=== PATIENT | female | born 2000 | race Two or more races ===

== ENCOUNTER 2019-02-15 11:47 | Emergency (ER) | payer MEDICAID ==
[~2019-02-15] VITALS: Ht 154.9 cm; Wt 47.6 kg
[2019-02-15] MEDS ORDERED: SODIUM CHLORIDE 0.9% 500 ML IV ONE (12:03)
[2019-02-15] MEDS ORDERED: ACETAMINOPHEN 500 MG TAB PO ONE (12:15)
[2019-02-15] MEDS ORDERED: ONDANSETRON HCL 4 MG/2 ML VIAL IV ONE (12:15)
[2019-02-15 12:22] VITALS: BP 99/50
[2019-02-15 12:43] LABS: Basophils # (auto) 0.1 uL; Basophils % (auto) 0.4 % (0.0-2.0); Eosinophils # (auto) 0 uL; Eosinophils % (auto) 0.2 % (0.0-7.0); Hematocrit 43.7 % (36.0-46.0); Hemoglobin 14.8 g/dL (12.2-16.2); Lymphocytes # (auto) 1.2 uL; Lymphocytes % (auto) 8.7 % (10.0-50.0); Mean Corpuscular Hemoglobin 30.5 pg (28.0-32.0); Mean Corpuscular Volume 89.8 fL (80.0-100.0); Monocytes # (auto) 0.4 uL; Monocytes % (auto) 2.8 % (0.0-12.0); Neutrophils # (auto) 11.9 uL; Neutrophils % (auto) 87.9 % (37.0-80.0); Platelet Count (auto) 239 10^3/uL (140-450); Red Blood Cells 4.87 10^6/uL (4.0-5.20); White Blood Cell 13.5 10^3/uL (4.4-10.8)
[2019-02-15 12:58] LABS: INR 1.07 (0.9-1.15); Partial Thromboplastin Time 26.6 sec (23.78-33.04); Prothrombin Time 11.4 sec (9.27-12.13)
[2019-02-15 12:59] LABS: Albumin 4.3 g/dL (3.4-5.0)
[2019-02-15 13:04] LABS: BUN/Creatinine Ratio 14.8; Bilirubin, Total 0.4 mg/dL (0.2-1.0)
[2019-02-15 14:03] LABS: Urine Bacteria NONE SEEN /hpf (None Seen); Urine Blood 3+ /uL (Negative); Urine Mucus FEW (None Seen); Urine Specific Gravity 1.023 (1.001-1.035); Urine WBC 6 /hpf (0 - 5)
[2019-02-15] MEDS ORDERED: IOHEXOL 300 MG/ML 100ML BOTTLE IJ ONE (14:59)
[2019-02-15] MEDS ORDERED: cefTRIAXone W LIDOCAINE 1 GM IM IM ONE (15:00)
== END 2019-02-15 18:56 | disposition home or self-care (01) ==
LOC: ER 11:53
DX: N94.0 Mittelschmerz (principal); N39.0 Urinary tract infection, site not specified; Z88.0 Allergy status to penicillin
CPT/HCPCS: 36415; 74177; 76775; 76856; 80053; 81001; 83690; 84702; 85025; 85610; 85730; 87040; 94761; 99284; Q9967; J0696

== ENCOUNTER 2020-07-03 05:23 | Emergency (ER) | payer MEDICAID ==
[~2020-07-03] VITALS: Ht 129.5 cm; Wt 48.5 kg
[2020-07-03 06:39] LABS: Urine WBC None Seen /hpf (0 - 5)
[2020-07-03 06:45] LABS: Urine Bacteria NONE SEEN /hpf (None Seen); Urine Blood 3+ /uL (Negative); Urine Mucus FEW (None Seen); Urine Specific Gravity 1.027 (1.001-1.035)
[2020-07-03 07:23] VITALS: BP 99/59
[2020-07-03] MEDS ORDERED: KETOROLAC TROMETH 30 MG/ML 1ML VIAL IV ONE (08:00)
[2020-07-03 08:05] LABS: Basophils # (auto) 0 10 ^3/uL (0-0.2); Basophils % (auto) 0.2 % (0.0-2.0); Eosinophils # (auto) 0 10 ^3/uL (0-0.8); Eosinophils % (auto) 0.1 % (0.0-7.0); Hematocrit 44.6 % (36.0-46.0); Hemoglobin 15.4 g/dL (12.2-16.2); Lymphocytes # (auto) 0.8 10 ^3/uL (0.4-5.4); Lymphocytes % (auto) 4.8 % (10.0-50.0); Mean Corpuscular Hemoglobin 30.8 pg (28.0-32.0); Mean Corpuscular Hgb Conc. 34.6 g/dL (32.0-36.0); Monocytes # (auto) 0.4 10 ^3/uL (0-1.3); Monocytes % (auto) 2.7 % (0.0-12.0); Neutrophils # (auto) 14.7 10 ^3/uL (1.6-8.6); Neutrophils % (auto) 92.2 % (37.0-80.0); Platelet Count (auto) 269 10^3/uL (140-450); Red Blood Cells 5.01 10^6/uL (4.0-5.20); Red Cell Distribution Width 13.3 % (11.8-14.3)
[2020-07-03 08:13] LABS: Albumin 4.5 g/dL (3.4-5.0); BUN/Creatinine Ratio 16.4; Potassium 3.5 mmol/L (3.5-5.1)
[2020-07-03 08:16] LABS: Bilirubin, Total 0.5 mg/dL (0.2-1.0); Total Protein 8.8 g/dL (6.4-8.2)
== END 2020-07-03 08:54 | disposition home or self-care (01) ==
LOC: ER 05:23
DX: R10.32 Left lower quadrant pain (principal); R11.2 Nausea with vomiting, unspecified
CPT/HCPCS: 36415; 74176; 80053; 81001; 83690; 84702; 85025; 96374; 99284; J1885

== ENCOUNTER 2021-02-22 09:29 | Emergency (ER) | payer MEDICAID ==
[~2021-02-22] VITALS: Ht 154.9 cm; Wt 52.2 kg
[2021-02-22 09:37] VITALS: BP 107/64
== END 2021-02-22 11:12 | disposition home or self-care (01) ==
LOC: ER 09:29
DX: S90.32XA Contusion of left foot, initial encounter (principal); Z88.0 Allergy status to penicillin; W18.00XA Striking against unspecified object with subsequent fall, initial encounter; Y93.89 Activity, other specified; Y92.89 Other specified places as the place of occurrence of the external cause; Y99.8 Other external cause status
CPT/HCPCS: 73630

== ENCOUNTER 2022-09-17 20:24 | Emergency (ER) | payer MEDICAID ==
[~2022-09-17] VITALS: Ht 154.9 cm; Wt 55.8 kg
[2022-09-17 23:17] LABS: Urine Bacteria MOD /hpf (None Seen); Urine Blood Negative /uL (Negative); Urine Hyaline Cast FEW /lpf (0 - 2); Urine Mucus FEW (None Seen); Urine Specific Gravity 1.019 (1.001-1.035); Urine WBC 12 /hpf (0 - 5)
[2022-09-17] MEDS ORDERED: ONDA-144 PO (23:54)
[2022-09-18] MEDS ORDERED: ONDANSETRON ODT 4 MG TAB PO ONE
[2022-09-18 00:30] VITALS: BP 120/72
== END 2022-09-18 00:41 | disposition home or self-care (01) ==
LOC: ER 20:24
DX: O21.8 Other vomiting complicating pregnancy (principal); O23.42 Unspecified infection of urinary tract in pregnancy, second trimester; N39.0 Urinary tract infection, site not specified; O99.512 Diseases of the respiratory system complicating pregnancy, second trimester; J06.9 Acute upper respiratory infection, unspecified; Z79.899 Other long term (current) drug therapy; Z88.0 Allergy status to penicillin; Z3A.20 20 weeks gestation of pregnancy; Z20.822 Contact with and (suspected) exposure to COVID-19
CPT/HCPCS: 36415; 81001; 87426; 87804; 99283; Q0162

== ENCOUNTER 2022-09-22 08:35 | Emergency (ER) | payer MEDICAID ==
[~2022-09-22] VITALS: Ht 154.9 cm; Wt 55.9 kg
[~2022-09-22 08:35] MED LIST: ONDA-144 PO
[2022-09-22] MEDS ORDERED: ACET1CAP14 PO (10:07)
[2022-09-22 11:23] LABS: Basophils # (auto) 0.1 10 ^3/uL (0-0.2); Basophils % (auto) 0.6 % (0.0-2.0); Eosinophils # (auto) 0 10 ^3/uL (0-0.8); Eosinophils % (auto) 0.3 % (0.0-7.0); Hematocrit 36.8 % (36.0-46.0); Hemoglobin 12.7 g/dL (12.2-16.2); Lymphocytes # (auto) 0.9 10 ^3/uL (0.4-5.4); Lymphocytes % (auto) 9.9 % (10.0-50.0); Mean Corpuscular Hemoglobin 31.4 pg (28.0-32.0); Mean Corpuscular Hgb Conc. 34.5 g/dL (32.0-36.0); Mean Corpuscular Volume 91.2 fL (80.0-100.0); Monocytes # (auto) 0.7 10 ^3/uL (0-1.3); Monocytes % (auto) 7.9 % (0.0-12.0); Neutrophils % (auto) 81.3 % (37.0-80.0); Nucleated Red Blood Cells % 0.1 %; Red Blood Cells 4.04 10^6/uL (4.0-5.20); Red Cell Distribution Width 13.5 % (11.8-14.3); White Blood Cell 8.6 10^3/uL (4.4-10.8)
[2022-09-22 11:33] LABS: Urine Bacteria FEW /hpf (None Seen); Urine Blood Negative /uL (Negative); Urine Mucus FEW (None Seen); Urine Specific Gravity 1.031 (1.001-1.035); Urine WBC 10 /hpf (0 - 5)
[2022-09-22] MEDS ORDERED: NITR-52 PO (12:04)
[2022-09-22 12:16] LABS: BUN/Creatinine Ratio 14.6; Calcium 8.9 mg/dL (8.5-10.1); Potassium 3.9 mmol/L (3.5-5.1)
[2022-09-22 13:00] VITALS: BP 132/64
== END 2022-09-22 13:24 | disposition home or self-care (01) ==
LOC: ER 08:35
DX: O99.512 Diseases of the respiratory system complicating pregnancy, second trimester (principal); N39.0 Urinary tract infection, site not specified; J10.1 Influenza due to other identified influenza virus with other respiratory manifestations; Z3A.20 20 weeks gestation of pregnancy; Z88.0 Allergy status to penicillin; Z20.822 Contact with and (suspected) exposure to COVID-19
CPT/HCPCS: 36415; 76805; 80048; 81001; 81025; 84702; 85025; 86901; 87426; 87804

== ENCOUNTER 2022-11-11 07:19 | Observation (INO) | payer MEDICAID ==
[~2022-11-11 07:19] MED LIST changes: +ACET1CAP14 PO; +NITR-52 PO
[2022-11-11] MEDS ORDERED: PREN-96 PO (08:08)
== END 2022-11-11 08:19 | disposition home or self-care (01) ==
LOC: LDRP 07:19
PROVIDERS: ADMIT Obstetrics & Gynecology; ATTEND Obstetrics & Gynecology
DX: O36.8120 Decreased fetal movements, second trimester, not applicable or unspecified (principal); Z3A.27 27 weeks gestation of pregnancy
CPT/HCPCS: 59025; 81002; 94760; G0378

== ENCOUNTER 2022-12-31 19:23 | Observation (INO) | payer MEDICAID ==
[~2022-12-31] VITALS: Ht 154.9 cm; Wt 59.9 kg
[~2022-12-31 19:23] MED LIST changes: +PREN-96 PO
[2022-12-31] MEDS ORDERED: CEPH-510 PO (21:35)
== END 2022-12-31 21:49 | disposition home or self-care (01) ==
LOC: LDRP 19:23 → UNDOADMIN 19:23 → LDRP 19:23 → UNDODISIN 21:55 → EDSTATUS 01-01 06:16
PROVIDERS: ADMIT Obstetrics & Gynecology; ATTEND Obstetrics & Gynecology
DX: O23.43 Unspecified infection of urinary tract in pregnancy, third trimester (principal); O26.853 Spotting complicating pregnancy, third trimester; Z3A.35 35 weeks gestation of pregnancy; Z88.0 Allergy status to penicillin
CPT/HCPCS: 59025; 76818; 81002; G0378

== ENCOUNTER → 2023-01-06 | Outpatient (CLI) | payer MEDICAID ==
[~2023-01-06] MED LIST changes: +CEPH-510 PO; -ONDA-144 PO
[2023-01-06 12:24] LABS: Basophils # (auto) 0 10 ^3/uL (0-0.2); Basophils % (auto) 0.4 % (0.0-2.0); Eosinophils # (auto) 0.1 10 ^3/uL (0-0.8); Eosinophils % (auto) 1.2 % (0.0-7.0); Hematocrit 39.8 % (36.0-46.0); Hemoglobin 13.9 g/dL (12.2-16.2); Lymphocytes # (auto) 1.3 10 ^3/uL (0.4-5.4); Lymphocytes % (auto) 15.1 % (10.0-50.0); Mean Corpuscular Hemoglobin 31.2 pg (28.0-32.0); Mean Corpuscular Hgb Conc. 34.9 g/dL (32.0-36.0); Mean Corpuscular Volume 89.4 fL (80.0-100.0); Monocytes # (auto) 0.6 10 ^3/uL (0-1.3); Monocytes % (auto) 6.8 % (0.0-12.0); Neutrophils # (auto) 6.4 10 ^3/uL (1.6-8.6); Neutrophils % (auto) 76.5 % (37.0-80.0); Red Blood Cells 4.46 10^6/uL (4.0-5.20); Red Cell Distribution Width 13.9 % (11.8-14.3); White Blood Cell 8.3 10^3/uL (4.4-10.8)
[2023-01-07 07:06] LABS: RPR Non Reactive (Non Reactive)
== END | disposition home or self-care (01) ==
LOC: LAB 11:46
PROVIDERS: ATTEND Obstetrics & Gynecology
DX: Z34.80 Encounter for supervision of other normal pregnancy, unspecified trimester (principal); Z3A.00 Weeks of gestation of pregnancy not specified
CPT/HCPCS: 36415; 84112; 85025; 86592

== ENCOUNTER 2023-01-30 10:52 | Observation (INO) | payer MEDICAID ==
[2023-01-30 13:26] LABS: Basophils # (auto) 0 10 ^3/uL (0-0.2); Basophils % (auto) 0.4 % (0.0-2.0); Eosinophils # (auto) 0.3 10 ^3/uL (0-0.8); Eosinophils % (auto) 3.2 % (0.0-7.0); Hematocrit 38.7 % (36.0-46.0); Hemoglobin 13.3 g/dL (12.2-16.2); Lymphocytes # (auto) 1.3 10 ^3/uL (0.4-5.4); Lymphocytes % (auto) 14.8 % (10.0-50.0); Mean Corpuscular Hemoglobin 30.9 pg (28.0-32.0); Mean Corpuscular Hgb Conc. 34.3 g/dL (32.0-36.0); Monocytes # (auto) 0.6 10 ^3/uL (0-1.3); Monocytes % (auto) 6.6 % (0.0-12.0); Neutrophils # (auto) 6.3 10 ^3/uL (1.6-8.6); Red Cell Distribution Width 14.8 % (11.8-14.3); White Blood Cell 8.4 10^3/uL (4.4-10.8)
[2023-01-30 13:59] LABS: Albumin 2.6 g/dL (3.4-5.0); Calcium 8.8 mg/dL (8.5-10.1); Potassium 3.6 mmol/L (3.5-5.1)
[2023-01-30 14:03] LABS: Bilirubin, Total 0.2 mg/dL (0.2-1.0); Total Protein 6.7 g/dL (6.4-8.2)
[2023-01-30] MEDS ORDERED: DIPH25CA66 PO (15:05)
== END 2023-01-30 15:15 | disposition home or self-care (01) ==
LOC: UNDOADMOB 10:52 → LDRP 10:52
PROVIDERS: ADMIT Obstetrics & Gynecology; ATTEND Obstetrics & Gynecology
DX: O62.9 Abnormality of forces of labor, unspecified (principal); O36.8130 Decreased fetal movements, third trimester, not applicable or unspecified; Z3A.39 39 weeks gestation of pregnancy
CPT/HCPCS: 36415; 59025; 80053; 81002; 85025; 94760; G0378

== ENCOUNTER 2023-01-31 17:40 | Inpatient (IN) | payer MEDICAID ==
[~2023-01-31] VITALS: Ht 154.9 cm; Wt 61.7 kg
[~2023-01-31 17:40] MED LIST changes: +DIPH25CA66 PO; -NITR-52 PO
[2023-01-31] MEDS ORDERED: PROMETHAZINE HCL 25 MG/ML 1ML IV PRN (19:45)
[2023-01-31] MEDS ORDERED: BUTORPHANOL TARTRATE 2 MG/1 ML VIAL IV PRN ×2 (19:45)
[2023-01-31] MEDS ORDERED: LACT. RINGERS/OXYTOCIN 20UNITS 500 ML IV ONE ×2 (19:45→20:15)
[2023-01-31] MEDS ORDERED: LIDOCAINE 2%HCL (LOCAL ANESTH.) INJ 20ML MDV IJ PRN (19:45)
[2023-01-31] MEDS ORDERED: PHISODERM TOP SOLN 240ML BTL TOP PRN (19:45)
[2023-01-31 20:16] LABS: Basophils # (auto) 0.1 10 ^3/uL (0-0.2); Basophils % (auto) 0.5 % (0.0-2.0); Eosinophils # (auto) 0.4 10 ^3/uL (0-0.8); Eosinophils % (auto) 3.4 % (0.0-7.0); Hematocrit 40.9 % (36.0-46.0); Hemoglobin 14.3 g/dL (12.2-16.2); Lymphocytes # (auto) 1.6 10 ^3/uL (0.4-5.4); Lymphocytes % (auto) 13.2 % (10.0-50.0); Mean Corpuscular Hemoglobin 30.7 pg (28.0-32.0); Mean Corpuscular Volume 87.7 fL (80.0-100.0); Monocytes # (auto) 0.6 10 ^3/uL (0-1.3); Monocytes % (auto) 4.6 % (0.0-12.0); Neutrophils # (auto) 9.4 10 ^3/uL (1.6-8.6); Neutrophils % (auto) 78.3 % (37.0-80.0); Nucleated Red Blood Cells % 0.9 %; Red Blood Cells 4.66 10^6/uL (4.0-5.20); Red Cell Distribution Width 14.4 % (11.8-14.3); White Blood Cell 12.1 10^3/uL (4.4-10.8)
[2023-01-31 20:30] LABS: Urine Bacteria NONE SEEN /hpf (None Seen); Urine Blood Negative /uL (Negative); Urine Mucus FEW (None Seen); Urine Specific Gravity 1.029 (1.001-1.035); Urine WBC 9 /hpf (0 - 5)
[2023-01-31 20:32] LABS: INR 0.92 (0.9-1.15); Partial Thromboplastin Time 32.8 sec (24.6-33.4)
[2023-01-31 20:45] LABS: Albumin 3.1 g/dL (3.4-5.0); Calcium 9.4 mg/dL (8.5-10.1); Potassium 3.6 mmol/L (3.5-5.1)
[2023-01-31 20:45] LABS: Amphetamine Screen, Urine NEGATIVE (NEGATIVE); Barbiturate Scree,Urine NEGATIVE (NEGATIVE); Benzodiazephine Screen, Urine NEGATIVE (NEGATIVE); Cannabinoid Screen, Urine NEGATIVE (NEGATIVE); Cocaine Screen, Urine NEGATIVE (NEGATIVE); Opiate Scree,Urine NEGATIVE (NEGATIVE); Phencyclidine Screen, Urine NEGATIVE (NEGATIVE)
[2023-01-31 20:54] LABS: Bilirubin, Total 0.4 mg/dL (0.2-1.0); Total Protein 7.8 g/dL (6.4-8.2)
[2023-01-31] MEDS: LACTATED RINGER'S 1,000 ML IV SCH (22:17)
[2023-02-01] MEDS: LACTATED RINGER'S 1,000 ML IV SCH ×3 (00:32→22:25)
[2023-02-01] MEDS ORDERED: diphenhdrAMINE HCL 25 MG CAP PO ONE (04:15)
[2023-02-01] MEDS ORDERED: miSOPROStol 100 mcg TAB ONE (04:39)
[2023-02-01] MEDS: miSOPROStol 50 MCG per PRE-CUT 1/2 TAB PO PRN ×2 (04:45→08:34)
[2023-02-01] MEDS: diphenhdrAMINE HCL 50 MG/1 ML VL IV PRN ×2 (10:37→14:19)
[2023-02-01] MEDS ORDERED: Lidocaine W-Epinephrine 1.5%-1:200,000 INJ 10ml Vial ONE (11:42)
[2023-02-01] MEDS ORDERED: NALOXONE HCL 0.4 MG/ML VIAL IV ONE (11:45)
[2023-02-01] MEDS ORDERED: ROPIVACAINE HCL 200 ML EPI SCH (11:45)
[2023-02-01] MEDS ORDERED: LIDOCAINE HCL 2 %PF INJ 10ML AMP IJ ONE (11:45)
[2023-02-01] MEDS ORDERED: ePHEDrine SULFATE 50 MG/ML AMP IV ONE (11:45)
[2023-02-01] MEDS ORDERED: LIDOCAINE W/ EPINEPHRINE 1.5 % INJ 5ML AMP IJ ONE (11:45)
[2023-02-01] MEDS ORDERED: TERBUTALINE SULFATE 1 MG/ML 1ML VIAL SC PRN (12:45)
[2023-02-01] MEDS ORDERED: LACT. RINGERS/OXYTOCIN 20UNITS 1,000 ML IV SCH (12:45)
[2023-02-01] MEDS: WITCH HAZEL-GLYCERIN PAD TOP PRN (16:48)
[2023-02-01] MEDS: DERMOPLAST 60ML BOTTLE TOP PRN (16:49)
[2023-02-01] MEDS ORDERED: FAMOTIDINE (10MG/ML) 2ML VL IV ONE (17:00)
[2023-02-01] MEDS ORDERED: LORATADINE 10 MG TAB PO ONE (17:00)
[2023-02-01] MEDS ORDERED: miSOPROStol 100 mcg TAB SL PRN (18:15)
[2023-02-01] MEDS ORDERED: METHYLERGONOVINE MALEATE 0.2 MG/ML AMP IM PRN (18:15)
[2023-02-01] MEDS ORDERED: ACETAMINOPHEN 325 MG TAB PO PRN (18:15)
[2023-02-01] MEDS ORDERED: CARBOPROST TROMETHAMINE 250 MCG/1ML VIAL IM PRN (22:30)
[2023-02-02] MEDS ORDERED: LACT. RINGERS/OXYTOCIN 20UNITS 500 ML IV ONE ×2 (01:50→02:20)
[2023-02-02] MEDS ORDERED: ERYTHROMY OPTH OINT 5mg/gm 1gm or 3.5gm tube OP ONE (02:30)
[2023-02-02] MEDS ORDERED: HEPATITIS B VACCINE PED (PF) 10 MCG/0.5 ML IM ONE (02:30)
[2023-02-02] MEDS ORDERED: PHYTONADIONE 1MG/0.5ML SYRINGE NEONATAL IM ONE (02:30)
[2023-02-02] MEDS ORDERED: ONDANSETRON ODT 4 MG TAB PO PRN (03:00)
[2023-02-02] MEDS: ACETAMINOPHEN 325 MG TAB PO PRN ×2 (03:14→11:59)
[2023-02-02] MEDS ORDERED: miSOPROStol 50 MCG per PRE-CUT 1/2 TAB PO PRN (03:15)
[2023-02-02 07:10] VITALS: BP 97/57
[2023-02-02] MEDS: IBUPROFEN 800 MG TAB PO PRN ×2 (08:37→23:18)
[2023-02-02] MEDS ORDERED: DIPHENOXYLATE W/ATROPINE 2.5 MG TAB PO SCH (10:00)
[2023-02-02 10:30] VITALS: BP 96/62
[2023-02-02 15:30] VITALS: BP 98/66
[2023-02-02 19:30] VITALS: BP 104/70
[2023-02-02] MEDS: diphenhdrAMINE HCL 25 MG CAP PO PRN (21:44)
[2023-02-02] MEDS ORDERED: DOCUSATE SOD 100 MG CAP PO SCH (22:00)
[2023-02-02 23:15] VITALS: BP 112/65
[2023-02-03 04:00] VITALS: BP 103/62
[2023-02-03] MEDS: ACETAMINOPHEN 325 MG TAB PO PRN (04:24)
[2023-02-03 07:00] VITALS: BP 105/60
[2023-02-03] MEDS: WITCH HAZEL-GLYCERIN PAD TOP PRN (09:03)
[2023-02-03] MEDS: DERMOPLAST 60ML BOTTLE TOP PRN (09:03)
[2023-02-03] MEDS: diphenhdrAMINE HCL 25 MG CAP PO PRN (09:03)
[2023-02-03] MEDS: IBUPROFEN 800 MG TAB PO PRN (09:03)
[2023-02-03 11:00] VITALS: BP 117/59
[2023-02-03 12:07] LABS: RPR Non Reactive (Non Reactive)
== END 2023-02-03 11:45 | disposition home or self-care (01) | DRG 560 ==
LOC: UNDOADMOB 17:40 → LDRP 17:40 → OBSVTOIN 19:33 → LDRP 02-02 04:23
PROVIDERS: ADMIT Obstetrics & Gynecology; ATTEND Obstetrics & Gynecology
PROC: 3E0DXGC Introduction of Other Therapeutic Substance into Mouth and Pharynx, External Approach (ICD-10-PCS; 2023-01-31)
PROC: 3E0P7VZ Introduction of Hormone into Female Reproductive, Via Natural or Artificial Opening (ICD-10-PCS; 2023-01-31)
PROC: 10E0XZZ Delivery of Products of Conception, External Approach (ICD-10-PCS; principal; 2023-02-02)
PROC: 0UQMXZZ Repair Vulva, External Approach (ICD-10-PCS; 2023-02-02)
PROC: 00HU33Z Insertion of Infusion Device into Spinal Canal, Percutaneous Approach (ICD-10-PCS; 2023-02-02)
PROC: 3E0R3BZ Introduction of Anesthetic Agent into Spinal Canal, Percutaneous Approach (ICD-10-PCS; 2023-02-02)
DX: O77.0 Labor and delivery complicated by meconium in amniotic fluid (principal); Z37.0 Single live birth; O48.0 Post-term pregnancy; O70.0 First degree perineal laceration during delivery; Z20.822 Contact with and (suspected) exposure to COVID-19; Z88.5 Allergy status to narcotic agent; Z88.0 Allergy status to penicillin; Z3A.40 40 weeks gestation of pregnancy; O76 Abnormality in fetal heart rate and rhythm complicating labor and delivery
CPT/HCPCS: 36415; 59025; 59409; 62282; 76818; 80053; 80307; 81001; 81002; 85025; 85610; 85730; 86592; 86850; 86900; 86901; 87426; 94760; 94762; 96360; 96361; 96365; 96366; G0378; J2590; J3490

== ENCOUNTER → 2023-04-01 | Outpatient (CLI) | payer MEDICAID ==
[2023-04-01 11:26] LABS: Basophils # (auto) 0.1 10 ^3/uL (0-0.2); Basophils % (auto) 0.9 % (0.0-2.0); Eosinophils # (auto) 0.2 10 ^3/uL (0-0.8); Eosinophils % (auto) 3.6 % (0.0-7.0); Hematocrit 40.9 % (36.0-46.0); Hemoglobin 14.2 g/dL (12.2-16.2); Lymphocytes # (auto) 1.7 10 ^3/uL (0.4-5.4); Lymphocytes % (auto) 25.8 % (10.0-50.0); Mean Corpuscular Hemoglobin 30.1 pg (28.0-32.0); Mean Corpuscular Hgb Conc. 34.8 g/dL (32.0-36.0); Mean Corpuscular Volume 86.4 fL (80.0-100.0); Monocytes # (auto) 0.4 10 ^3/uL (0-1.3); Monocytes % (auto) 6.3 % (0.0-12.0); Neutrophils # (auto) 4.3 10 ^3/uL (1.6-8.6); Neutrophils % (auto) 63.4 % (37.0-80.0); Nucleated Red Blood Cells % 0.1 %; Red Blood Cells 4.73 10^6/uL (4.0-5.20); Red Cell Distribution Width 13.4 % (11.8-14.3); White Blood Cell 6.8 10^3/uL (4.4-10.8)
[2023-04-01 12:26] LABS: Beta HCG, Quantitative < 1 mlU/mL (1-3); Thyroid Stimulating Hormone 1.57 uIU/mL (0.358-3.74)
[2023-04-01 13:18] LABS: Follicle Stimulating Hormone 4.61 IU/L (SEE BELOW); Leuteinizing Hormone 4.9 IU/L
== END | disposition home or self-care (01) ==
LOC: LAB 11:12
PROVIDERS: ATTEND Obstetrics & Gynecology
DX: N93.9 Abnormal uterine and vaginal bleeding, unspecified (principal)
CPT/HCPCS: 36415; 81025; 82670; 83001; 83002; 84144; 84403; 84443; 84702; 85025

== ENCOUNTER 2023-04-15 11:48 | Emergency (ER) | payer MEDICAID ==
[~2023-04-15] VITALS: Ht 154.9 cm; Wt 53.0 kg
[2023-04-15 12:15] VITALS: BP 101/78
[2023-04-15 13:36] LABS: Basophils # (auto) 0.1 10 ^3/uL (0-0.2); Basophils % (auto) 0.4 % (0.0-2.0); Eosinophils # (auto) 0.1 10 ^3/uL (0-0.8); Hemoglobin 14.2 g/dL (12.2-16.2); Lymphocytes # (auto) 1.5 10 ^3/uL (0.4-5.4); Lymphocytes % (auto) 11.8 % (10.0-50.0); Mean Corpuscular Hemoglobin 29.6 pg (28.0-32.0); Mean Corpuscular Hgb Conc. 33.7 g/dL (32.0-36.0); Mean Corpuscular Volume 87.7 fL (80.0-100.0); Monocytes # (auto) 0.5 10 ^3/uL (0-1.3); Monocytes % (auto) 4.4 % (0.0-12.0); Neutrophils # (auto) 10.4 10 ^3/uL (1.6-8.6); Neutrophils % (auto) 82.4 % (37.0-80.0); Red Blood Cells 4.79 10^6/uL (4.0-5.20); Red Cell Distribution Width 13.5 % (11.8-14.3); White Blood Cell 12.6 10^3/uL (4.4-10.8)
[2023-04-15 13:45] LABS: Urine Bacteria MANY /hpf (None Seen); Urine Blood 3+ /uL (Negative); Urine Mucus FEW (None Seen); Urine Specific Gravity 1.029 (1.001-1.035); Urine WBC 141 /hpf (0 - 5)
[2023-04-15 14:02] LABS: Albumin 4.1 g/dL (3.4-5.0); CRP High Sensitivity 0.14 mg/dL (< 0.3); Calcium 8.7 mg/dL (8.5-10.1); Potassium 3.7 mmol/L (3.5-5.1)
[2023-04-15 14:05] LABS: BUN/Creatinine Ratio 17.9 (10.0-20.0); Bilirubin, Total 0.5 mg/dL (0.2-1.0)
[2023-04-15] MEDS ORDERED: ZOFR4T PO (14:27)
[2023-04-15] MEDS ORDERED: CEPH500C PO (14:27)
== END 2023-04-15 18:08 | disposition home or self-care (01) ==
LOC: ER 11:48
DX: N39.0 Urinary tract infection, site not specified (principal); K59.00 Constipation, unspecified; R10.2 Pelvic and perineal pain; Z88.0 Allergy status to penicillin
CPT/HCPCS: 36415; 74176; 80053; 81001; 81025; 83605; 83690; 84484; 84702; 85025; 86141; 87040; 87086

== ENCOUNTER → 2023-09-18 | Outpatient (CLI) | payer MEDICAID ==
[~2023-09-18] MED LIST changes: +CEPH500C PO; +ZOFR4T PO
[2023-09-18 16:06] LABS: Basophils # (auto) 0.1 10 ^3/uL (0-0.2); Basophils % (auto) 0.9 % (0.0-2.0); Eosinophils # (auto) 0.2 10 ^3/uL (0-0.8); Hematocrit 42.5 % (36.0-46.0); Hemoglobin 14.7 g/dL (12.2-16.2); Lymphocytes # (auto) 2.6 10 ^3/uL (0.4-5.4); Lymphocytes % (auto) 28.3 % (10.0-50.0); Mean Corpuscular Hemoglobin 29.9 pg (28.0-32.0); Mean Corpuscular Hgb Conc. 34.5 g/dL (32.0-36.0); Mean Corpuscular Volume 86.7 fL (80.0-100.0); Monocytes # (auto) 0.7 10 ^3/uL (0-1.3); Monocytes % (auto) 7.6 % (0.0-12.0); Neutrophils # (auto) 5.6 10 ^3/uL (1.6-8.6); Neutrophils % (auto) 61.2 % (37.0-80.0); Red Blood Cells 4.91 10^6/uL (4.0-5.20); Red Cell Distribution Width 13.3 % (11.8-14.3); White Blood Cell 9.2 10^3/uL (4.4-10.8)
[2023-09-18 16:52] LABS: Alanine Aminotransferase 25 U/L (7-40); Albumin 4.9 g/dL (3.2-4.8); Alkaline Phosphatase 146 U/L (46-116); Anion Gap 6 (5-15); Aspartate Aminotransferase 19 U/L (13-40); BUN/Creatinine Ratio 13.7 (10.0-20.0); Bilirubin, Total 0.5 mg/dL (0.2-1.0); Blood Urea Nitrogen 10 mg/dL (9-23); Calcium 9.3 mg/dL (8.5-10.1); Carbon Dioxide 27 mmol/L (20-30); Chloride 106 mmol/L (98-107); Glucose 109 mg/dL (74-106); Potassium 4.1 mmol/L (3.5-5.1); Sodium 139 mmol/L (136-145); Total Protein 7.6 g/dL (5.7-8.2)
[2023-09-18 16:53] LABS: Beta HCG, Quantitative 0.6 mIU/mL (1.5-4.2)
[2023-09-18 16:55] LABS: Free T4 (Free Thyroxine) 0.92 ng/dL (0.89-1.76)
[2023-09-18 16:56] LABS: Free T3 3.24 pg/mL (2.3-4.2); Thyroid Stimulating Hormone 1.3 uIU/mL (0.358-3.74)
== END | disposition home or self-care (01) ==
LOC: LAB 15:49
PROVIDERS: ATTEND Obstetrics & Gynecology
DX: R87.1 Abnormal level of hormones in specimens from female genital organs (principal)
CPT/HCPCS: 36415; 80053; 81025; 84439; 84443; 84481; 84702; 85025